=== PATIENT | female | born 1970 | race Caucasian/White ===

== ENCOUNTER 2017-02-08 14:27 | Emergency (ER) | payer OTHER ==
[~2017-02-08] VITALS: Ht 160 cm; Wt 54.7 kg
[2017-02-08 14:30] VITALS: TEMP 36.7; Ht 160 cm; Wt 54.7 kg
[2017-02-08] MEDS ORDERED: MULT-580 PO (15:41)
[2017-02-08] MEDS ORDERED: ESCI10TA17 PO (15:41)
[2017-02-08] MEDS ORDERED: SUMA50TA15 PO (15:41)
[2017-02-08] MEDS ORDERED: CETI10TA84 PO (15:41)
[2017-02-08] MEDS ORDERED: SODIUM CHLORIDE 0.9% 1000ML 1,000 ML IV STA (15:46)
[2017-02-08 16:06] LABS: BASO % 0.3 %; BASO ABS # 0.03 K/uL (0-0.2); COMPLETE YES; EOS % 3.7 %; HEMATOCRIT 41.7 % (37-47); IG% 0.1 %; LYMPH % 32.8 %; LYMPH ABS # 2.87 K/uL (1.2-3.4); MEAN CELL VOLUME 88.9 fL (80-100); MEAN CORPUSCULAR HEMOGLOBIN 29.9 pg (25-34); MEAN CORPUSCULAR HGB CONC 33.6 g/dl (32-36); MONO % 8.1 %; PLATELET COUNT 242 K/uL (130-400); RED BLOOD COUNT 4.69 M/uL (4.2-5.4); WHITE BLOOD COUNT 8.74 K/uL (4.8-10.8)
--- NOTE | 2017-02-08 16:09 | EMERGENCY ROOM VISIT NOTE ---
History Report prepared by Benita: Shaniqua Jerome Under the Supervision of: Dr. Joseph Rodriguez M.D. First contact with patient: 15:35 Chief Complaint: PALPITATIONS Stated Complaint: HEART PALPITATIONS, TIGHTNESS IN CHEST Nursing Triage Summary: Pt reports tightness in chest, heart palpitations off/on for a couple weeks. Seen at PCP 2 weeks ago for stress/anxiety. Did an EKG and has a stress test scheduled for 02/24. Today h/a, nausea, sob, feels tired. History of Present Illness The patient is a 46 year old female who presents to the Emergency Room with complaints of intermittent heart palpitations starting 2 weeks ago. The patient went to see her PCP and had an EKG which was abnormal. She is scheduled for a stress test in 2 weeks. She describes the palpitations as "flip flopping" of her heart. With the palpitations, she feels slightly SOB and nauseous. She currently has some chest tightness. She has been feeing intermittently fatigued over the past 2 weeks. She also reports more frequent migraines. The palpitations were more frequent today. She currently does not have any palpitations. They do not change with lying flat. She has had some coughing at night. She denies any vomiting, fever, congestion, or chills. She notes that she was started on Lexapro for anxiety 2 weeks ago. Her symptoms were present before starting the medication. She denies any other medical problems. She is not on control. She denies any chance of . Her LNMP was in August. Her periods have been irregular as she approaches menopause. Her brother had an [place] at 58. She has a family history of hypertension. She denies any alcohol use or smoking. She denies any history of diabetes, cancer, or blood clots. She denies any recent surgery or trips. Source of History: patient Onset: 2 weeks ago Position: other (global) Quality: other (heart palpitations) Timing: intermittent Associated Symptoms: + headache, + cough, + chest pain, + SOB, + nausea, No fevers, No chills, No vomiting Note: Pt denies congestion. Review of Systems See HPI for pertinent positives and negatives. A total of ten systems were reviewed and were otherwise negative. Past Medical & Surgical Medical Problems: (1) Anxiety Family History Hypertension [place] (myocardial infarction) Social History Smoking Status: Former Smoker Marital Status: Current/Historical Medications Scheduled Cetirizine (Zyrtec), 10 MG PO DAILY Escitalopram (Lexapro), 10 MG PO DAILY Multiple Vitamins W/ Minerals (Hair/Skin/Nails), 1 TAB PO DAILY Sumatriptan Succinate (Imitrex), 1 TAB PO PRN Allergies Coded Allergies: Sulfa Antibiotics (Verified Allergy, Unknown, UNKNOWN, 02/08/17) Physical Exam Vital Signs Date Time Temp Pulse Resp B/P (MAP) Pulse Ox O2 Delivery O2 Flow Rate FiO2 02/08/17 19:27 74 16 110/64 96 02/08/17 18:34 60 17 110/68 97 02/08/17 16:45 71 15 109/66 97 Room Air 02/08/17 16:08 68 02/08/17 15:58 Room Air 02/08/17 14:30 36.7 88 20 111/70 95 Room Air Physical Exam GENERAL: Awake, alert, well-appearing, in no distress HENT: Normocephalic, atraumatic. Oropharynx unremarkable. EYES: Normal conjunctiva. Sclera non-icteric. NECK: Supple. No nuchal rigidity. FROM. No JVD. RESPIRATORY: Clear to auscultation. CARDIAC: Regular rate, normal rhythm. Extremities warm and well perfused. Pulses equal. ABDOMEN: Soft, non-distended. No tenderness to palpation. No rebound or guarding. No masses. RECTAL: Deferred. MUSCULOSKELETAL: Chest examination reveals no tenderness. The back is symmetrical on inspection without obvious abnormality. There is no CVA tenderness to palpation. No joint edema. LOWER EXTREMITIES: Calves are equal size bilaterally and non-tender. No edema. No discoloration. NEURO: Normal sensorium. No sensory or motor deficits noted. SKIN: No rash or jaundice noted. Medical Decision & Procedures ER Provider Diagnostic Interpretation: Radiology results as stated below per my review and radiologist interpretation: CHEST ONE VIEW PORTABLE CLINICAL HISTORY: 46 years-old Female presenting with CHEST PAIN, heart palpitations, chest tightness. TECHNIQUE: Portable upright AP view of the chest was obtained. COMPARISON: None. FINDINGS: Cardiomediastinal silhouette normal. Lungs and pleural spaces clear. Osseous structures normal. Upper abdomen normal. IMPRESSION: 1. No acute cardiopulmonary disease. Electronically signed by: Trav Forbes M.D. 02/08/2017 4:23 PM Dictated Date/Time: 02/08/2017 4:22 PM Laboratory Results 02/08/17 15:25 Red Blood Count 4.69, Mean Corpuscular Volume 88.9, Mean Corpuscular Hemoglobin 29.9, Mean Corpuscular Hemoglobin Concent 33.6, Mean Platelet Volume 10.0, Neutrophils (%) (Auto) 55.0, Lymphocytes (%) (Auto) 32.8, Monocytes (%) (Auto) 8.1, Eosinophils (%) (Auto) 3.7, Basophils (%) (Auto) 0.3, Neutrophils # (Auto) 4.80, Lymphocytes # (Auto) 2.87, Monocytes # (Auto) 0.71, Eosinophils # (Auto) 0.32, Basophils # (Auto) 0.03 02/08/17 15:25 Test 02/08/17 15:25 02/08/17 18:14 White Blood Count 8.74 K/uL (4.8-10.8) Red Blood Count 4.69 M/uL (4.2-5.4) Hemoglobin 14.0 g/dL (12.0-16.0) Hematocrit 41.7 % (37-47) Mean Corpuscular Volume 88.9 fL (80-100) Mean Corpuscular Hemoglobin 29.9 pg (25-34) Mean Corpuscular Hemoglobin Concent 33.6 g/dl (32-36) Platelet Count 242 K/uL (130-400) Mean Platelet Volume 10.0 fL (7.4-10.4) Neutrophils (%) (Auto) 55.0 % Lymphocytes (%) (Auto) 32.8 % Monocytes (%) (Auto) 8.1 % Eosinophils (%) (Auto) 3.7 % Basophils (%) (Auto) 0.3 % Neutrophils # (Auto) 4.80 K/uL (1.4-6.5) Lymphocytes # (Auto) 2.87 K/uL (1.2-3.4) Monocytes # (Auto) 0.71 K/uL (0.11-0.59) Eosinophils # (Auto) 0.32 K/uL (0-0.5) Basophils # (Auto) 0.03 K/uL (0-0.2) RDW Standard Deviation 40.6 fL (36.4-46.3) RDW Coefficient of Variation 12.7 % (11.5-14.5) Immature Granulocyte % (Auto) 0.1 % Immature Granulocyte # (Auto) 0.01 K/uL (0.00-0.02) Anion Gap 5.0 mmol/L (3-11) Est Creatinine Clear Calc Drug Dose 58.1 ml/min Estimated GFR () 78.7 Estimated GFR (Non- 67.9 BUN/Creatinine Ratio 11.9 (10-20) Calcium Level 9.0 mg/dl (8.5-10.1) Magnesium Level 2.2 mg/dl (1.8-2.4) Thyroid Stimulating Hormone (TSH) 0.542 uIu/ml (0.300-4.500) Human Chorionic Gonadotropin, Qual NEG (NEG) Troponin I < 0.015 ng/ml (0-0.045) Laboratory results reviewed by me Medications Administered Medications (Trade) Dose Ordered Sig/[place] Route Start Time Stop Time Status Last Admin Dose Admin Sodium Chloride 1,000 ml @ 999 mls/hr Q1H1M STAT IV 02/08/17 15:46 02/08/17 16:46 DC 02/08/17 15:59 999 MLS/HR Metoclopramide HCl (Reglan Inj) 10 mg NOW STAT IV 02/08/17 18:24 02/08/17 18:25 DC 02/08/17 18:34 10 MG ECG Indication: palpitations Rate (beats per minute): 78 Rhythm: sinus with SA Findings: no acute ischemic change, other (normal axis, normal intervals) Comparison ECG Date: 25-Jan-2017 Change: Today's EKG shows resolution of TWI in V2, otherwise no change. ED Course 1545: The patient was evaluated in room C4. A complete history and physical exam was performed. 1546: NSS 1000 ml @ 999 mls/hr IV. 1815: I reevaluated the patient. I discussed results and discharge instructions : She verbalized understanding and agreement. The patient is ready for discharge. 182: Reglan Inj 10 mg IV. Medical Decision Differential diagnosis: arrhythmia, dehydration, electrolyte abnormality, pericarditis, myocarditis, pneumonia, bronchitis, ACS, PE. I reviewed the patient's past medical history, medications, and the nursing notes as described above. The patient is a 46-year-old woman has moist department with persistent palpitations, chest tightness with shortness of breath and nausea intermittently for the past 2 weeks in the setting of a history of anxiety, and reported abnormal EKG with scheduled stress test in February history of present illness. Arrival patient is in no acute distress afebrile with stable vital signs. Patient reports history of heart disease in brother who is in his late 50s. With this, patient will be a heart score of 2 if her troponin is negative , thus low risk. PERC negative threfore PE not likely. EKG unremarkable and compared to prior which patient was told was "abnormal". On review of the EKG she does have a T-wave inversion of V2 which today is resolved, given this is a single lead this could be due to variability in vector. Delta troponin was done and was unchanged. Thus ACS unlikely. Findings and plan for follow-up d/w patient. Patient agreeable and d/c'd per discharge instructions. Medication Reconcilliation Current Medication List: was personally reviewed by me Blood Pressure Screening Patient's blood pressure: Normal blood pressure Blood pressure disposition: Did not require urgent referral Impression Primary Impression: Palpitations Additional Impression: Chest pain Scribe Attestation The scribe's documentation has been prepared under my direction and personally reviewed by me in its entirety. I confirm that the note above accurately reflects all work, treatment, procedures, and medical decision making performed by me. Departure Information Dispostion Home / Self-Care Referrals Jenny Klein PA-C (PCP) Patient Instructions ED Chest Pain Atypical Unkn Cause, ED Palpitations, My [facility] Additional Instructions Please follow up with your primary care physician in the next 1-3 days for re- evaluation and for your stress test as scheduled. Your exam, EKG, chest xray, and lab results did not show signs of an emergent condition at this time. Drink plenty of fluids to ensure hydration. Return to the emergency department for worsening symptoms as described in the accompanying instructions. Problem Qualifiers
[2017-02-08 16:14] LABS: BLOOD UREA NITROGEN 12 mg/dl (7-18); BUN/CREATININE RATIO 11.9 (10-20); CARBON DIOXIDE 29 mmol/L (21-32); CHLORIDE 109 mmol/L (98-107); CREATININE 0.99 mg/dl (0.60-1.20); GLUCOSE 93 mg/dl (70-99); MAGNESIUM 2.2 mg/dl (1.8-2.4); POTASSIUM 3.9 mmol/L (3.5-5.1); SODIUM 143 mmol/L (136-145)
[2017-02-08 16:15] LABS: PREG INTERNAL NEGATIVE QC NEG CLEAR BACKGROUND; PREG INTERNAL POSITIVE QC POS CONTROL LINE
[2017-02-08 16:25] LABS: THYROID STIMULATING HORMONE 0.542 uIu/ml (0.300-4.500)
--- NOTE | 2017-02-08 16:25 | DIAGNOSTIC IMAGING REPORT ---
CHEST ONE VIEW PORTABLE CLINICAL HISTORY: 46 years-old Female presenting with CHEST PAIN, heart palpitations, chest tightness. TECHNIQUE: Portable upright AP view of the chest was obtained. COMPARISON: None. FINDINGS: Cardiomediastinal silhouette normal. Lungs and pleural spaces clear. Osseous structures normal. Upper abdomen normal. IMPRESSION: 1. No acute cardiopulmonary disease. Electronically signed by: Trav Forbes M.D. 02/08/2017 4:23 PM Dictated Date/Time: 02/08/2017 4:22 PM
[2017-02-08] MEDS ORDERED: METOCLOPRAMIDE HCL INJ 5 MG/ML 2 ML VIAL IV STA (18:24)
[2017-02-08 19:27] VITALS: BP 110/64; PULSE 74; O2SAT 96
== END 2017-02-08 19:23 | disposition home or self-care (01) ==
LOC: C.EDB 14:29 → C.EDC 19:23
DX: R00.2 Palpitations (principal); R07.9 Chest pain, unspecified; F41.9 Anxiety disorder, unspecified; Z82.49 Family history of ischemic heart disease and other diseases of the circulatory system; Z87.891 Personal history of nicotine dependence; Z79.899 Other long term (current) drug therapy